=== PATIENT | male | born 1965 | race Caucasian/White ===

== ENCOUNTER → 2019-06-06 | Outpatient (CLI) | payer BC ==
[~2019-06-06] MED LIST: LEVAQUIN 750MG750 M1 PO; NO HOME MEDICATIONS; PERCOCET 325 MG1 TA3 PO; PERCOCET 500 MG1 TAB PO; TYLENOL 325MG325 MG PO; ZOFRAN8 MG PO; ZYLOPRIM 300MG300 MG PO
== END ==
LOC: COL.RAD 07:59
DX: C83.05 Small cell B-cell lymphoma, lymph nodes of inguinal region and lower limb (principal); J98.6 Disorders of diaphragm; N40.0 Benign prostatic hyperplasia without lower urinary tract symptoms
CPT/HCPCS: Q9967

== ENCOUNTER → 2019-12-10 | Outpatient (CLI) | payer BC | LOC: COL.RAD 07:48 | DX: C83.05 Small cell B-cell lymphoma, lymph nodes of inguinal region and lower limb (principal); Z98.52 Vasectomy status | CPT/HCPCS: Q9967 ==

== ENCOUNTER → 2020-06-09 | Outpatient (CLI) | payer BC | LOC: COL.RAD 08:01 | DX: C83.05 Small cell B-cell lymphoma, lymph nodes of inguinal region and lower limb (principal) | CPT/HCPCS: Q9967 ==

== ENCOUNTER → 2020-12-22 | Outpatient (CLI) | payer BC | LOC: COL.RAD 08:28 | DX: C83.05 Small cell B-cell lymphoma, lymph nodes of inguinal region and lower limb (principal) | CPT/HCPCS: Q9967 ==